=== PATIENT | male | born 1980 | race Caucasian/White ===

== ENCOUNTER 2017-03-12 18:52 | Emergency (ER) | payer OTHER ==
[~2017-03-12] VITALS: Ht 185.4 cm; Wt 124.9 kg
[2017-03-12 20:10] VITALS: BP 114/72
== END 2017-03-12 20:12 | disposition home or self-care (01) ==
LOC: ED 20:06
DX: K40.90 Unilateral inguinal hernia, without obstruction or gangrene, not specified as recurrent (principal); Z98.890 Other specified postprocedural states
CPT/HCPCS: 99284